=== PATIENT | female | born 2000 | race Caucasian/White ===

== ENCOUNTER 2020-08-04 18:00 | Inpatient (IN) | payer MEDICAID, SELFPAY ==
[2020-08-04 18:50] VITALS: BP 123/87; PULSE 82; RESP 16; TEMP 37; O2SAT 97; BMI 46.6
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
[2020-08-04 19:36] VITALS: BP 120/70; PULSE 80; RESP 16; TEMP 37; O2SAT 97
[2020-08-04 20:29] LABS: Basophils # 0.1 10^3/uL (0.0-0.1); Basophils % 0.7 %; Eosinophils # 0.3 10^3/uL (0.0-0.8); Eosinophils % 4.4 %; Hematocrit 42.9 % (37.0-47.0); Hemoglobin 13.7 g/dL (11.5-15.3); Lymphocytes # 2.3 10^3/uL (0.8-4.8); Lymphocytes % 30.8 %; Mean Corpuscular HGB Conc 31.9 g/dL (30.0-36.0); Mean Corpuscular Volume 84.4 fL (81-99); Mean Platelet Volume 10.4 fL (7.4-10.4); Monocytes # 0.5 10^3/uL (0.2-0.9); Monocytes % 6.8 %; Neutrophils # 4.29 10^3/uL (1.8-7.7); Neutrophils % 57.3 %; Nucleated Red Blood Cells % 0 %; Platelet Count 297 10^3/cmm (130-400); Red Blood Count 5.08 10^6/uL (4.1-5.3); Red Cell Distribution Width 14.1 % (12.1-15.1); White Blood Count 7.5 10^3/uL (4.0-10.0)
[2020-08-04 20:51] LABS: HCG Qualitative Urine. Negative (Negative)
[2020-08-04 20:51] LABS: Acetaminophen < 5.0 ug/mL (10-30); Alanine Aminotransferase 11 U/L (0-33); Albumin Level 4.2 g/dL (3.5-5.2); Alcohol Level < 10 mg/dL (0-10); Alkaline Phosphatase 65 IU/L (35-105); Anion Gap 13.8 (5-19); Aspartate Amino Transferase 14 U/L (0-32); Blood Urea Nitrogen 12 mg/dL (6-20); Calcium 8.9 mg/dL (8.5-10.5); Carbon Dioxide 23 mmol/L (22-29); Chloride 104 mmol/L (98-107); Globulin 3.1 g/dL (1.3-4.6); Glomerular Filtration Rate 105.6 mL/min (90-130); Glucose 85 mg/dL (65-115); Osmolality Calculated 283 mOsm/kg (285-295); Potassium 3.8 mmol/L (3.5-5.1); Salicylate < 0.3 mg/dL (3-10); Sodium 137 mmol/L (136-145); Total Bilirubin 0.3 mg/dL (0.15-1.2); Total Protein 7.3 g/dL (6.6-8.7)
[2020-08-04 22:24] LABS: Amphetamines Screen Urine Negative (Negative); Barbiturates Screen Urine Negative (Negative); Benzodiazepines Screen Urine Negative (Negative); Cocaine Screen Urine Negative (Negative); Opiate Screen Urine Negative (Negative); PCP Screen Urine Negative (Negative); THC Screen Urine Negative (Negative)
[2020-08-04 23:29] VITALS: BP 135/85; PULSE 67; RESP 18; TEMP 36.7; O2SAT 98
--- NOTE | 2020-08-04 23:36 | PC.NURSE ---
Skin assessment revealed no wounds or injuries. One bruise on abdomen. Bruising on left knee.
[2020-08-05 06:00] VITALS: BP 120/78; PULSE 71; RESP 17; TEMP 36.4; O2SAT 99
[2020-08-05] MEDS: nicotine 2 mg Gum BUCCAL ×2 (11:45→16:10)
[2020-08-05] MEDS: acetaminophen 325 mg Tablet 650 MG PO (12:02)
[2020-08-05] MEDS: hyDROXYzine 25 mg Capsule 50 MG PO (12:52)
[2020-08-05 14:00] VITALS: BP 120/78; PULSE 71; RESP 17; TEMP 36.4; O2SAT 99
[2020-08-05 15:31] VITALS: BP 98/64; PULSE 56; RESP 16; TEMP 37.2; O2SAT 98
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
[2020-08-05] MEDS: ARIPiprazole 10 mg Tablet PO (16:10)
[2020-08-05 20:42] VITALS: BP 130/85; PULSE 82; RESP 18; TEMP 37.2; O2SAT 96
[2020-08-05 20:43] VITALS: BP 130/85; PULSE 82; RESP 18; TEMP 37.2; O2SAT 96
[2020-08-05] MEDS: trazodone 50 mg Tablet PO (21:04)
--- NOTE | 2020-08-05 21:45 | PC.NURSE ---
pt requested sleep med, trazodone 50mg po given.
[2020-08-06 06:00] VITALS: BP 99/64; PULSE 79; RESP 17; TEMP 36.8; O2SAT 97
[2020-08-06] MEDS: nicotine 2 mg Gum BUCCAL ×3 (06:39→20:55)
[2020-08-06] MEDS: ARIPiprazole 10 mg Tablet PO (08:10)
[2020-08-06 14:00] VITALS: BP 114/62; PULSE 83; RESP 16; TEMP 36.6; O2SAT 98
[2020-08-06] MEDS: hyDROXYzine 25 mg Capsule 50 MG PO (16:05)
--- NOTE | 2020-08-06 16:07 | PC.NURSE ---
Patient request medication for anxiety. Hydroxizine 50 mg po given.
--- NOTE | 2020-08-06 20:03 | PM.NPN ---
Subjective NPU Subjective: Interval history: Maria Elena presented today reporting that she is feeling maybe a little better. Most of her energy was focused on the 96-hour hold and whether or not she would have to be in the hospital until . We discussed the 96-hour hold process and how we determine her discharge date. We discussed the risk-benefit and alternatives of increasing her Abilify to 50 mg p.o. every morning and she understood and agreed proceed as documented in his note. Mental Status Exam MSE Comments: This is a morbidly obese tall white female with hospital scrubs on with limited grooming but adequate eye contact. No abnormal movements except for mild psychomotor retardation. Cooperative with exam in no acute distress. Speech was normal rate and volume. Mood described as okay, affect odd with some inappropriate laughter and giggling. Thought process organized. Thought content: Patient denied suicidal or homicidal ideation, there are no delusions reported, but she does have some paranoid or bizarre delusional thoughts like she described believing that someone had done brain surgery on her, she endorsed auditory and visual hallucinations. Attention and concentration were intact and memory was mostly reliable but none were formally tested. She is alert and oriented x3. Insight and judgment are limited and impulse control is limited. Vitals/I&O/Wt Last Vital Signs Temp 97.9 F 08/06/20 14:00 Pulse 83 08/06/20 14:00 Resp 16 08/06/20 14:00 BP 114/62 08/06/20 14:00 Pulse Ox 98 08/06/20 14:00 Weight last 48 hrs Weight 139.253 kg Data NPU : 08/04/20 20:19 08/04/20 20:19 A&P Additional A&P Information (1) Methamphetamine use: (2) Acute psychosis: (3) History of posttraumatic stress disorder (PTSD): Additional A&P Information This is a 20-year-old white female with a long history of traumatic events in her life, disruption of her family with placement outside the home but no independent psychiatric care in her life who presents with active addiction but negative UDS with odd behavior/psychosis open to medication trial. 1. Continue current medication. Increase Abilify to 15 mg p.o. every morning. 2. Continue every 15 minute checks for safety. 3. Encourage individual, group and milieu therapies. 4. Encourage sober living treatment after discharge at the highest level of care to which he is willing to commit. Involuntary Hold Information 96 Hour Hold: 96 Hour Involuntary Admission: Yes 96 Hour Hold Ending Date: 08/10/20 96 Hour Hold Ending Time: 20:59 Attestations NPU Medical Necessity Statement*: Inpatient hospitalization is medically necessary and the clinically appropriate intervention at this time. We will monitor medications and make changes as indicated. Likely length of stay 2-4 days. Coding Level of Care Code Acute Research Physicist for Radha Butler
[2020-08-06] MEDS: trazodone 50 mg Tablet PO (20:39)
[2020-08-06 21:42] VITALS: BP 120/90; PULSE 94; RESP 21; TEMP 36.9; O2SAT 97
[2020-08-07 06:00] VITALS: BP 137/85; PULSE 98; RESP 19; TEMP 37.1; O2SAT 99
[2020-08-07] MEDS: ARIPiprazole 10 mg Tablet 15 MG PO (08:31)
[2020-08-07] MEDS: nicotine 2 mg Gum BUCCAL (11:19)
[2020-08-07 14:00] VITALS: PULSE 97; RESP 20; TEMP 36.2; O2SAT 98
--- NOTE | 2020-08-07 16:07 | P.PN_ITS ---
Subjective NPU Subjective: Interval history: Maria Elena presents today being more irritable about discharge now reporting that she has an appointment for her daughter in the morning that she has to get to. It appears to be to get resources for her family. We discussed possible talking to her brother who was part of her coming over and seeing how he feels she is improving. She reports he is fine but her full focus has turned to the discharge for some days now. Mental Status Exam MSE Comments: This is a morbidly obese tall white female with hospital scrubs on with limited grooming but adequate eye contact. No abnormal movements except for mild psychomotor agitation. Mostly cooperative with exam in mild distress. Speech was normal rate and volume. Mood described as I need to leave I am fine, affect less odd. Thought process organized. Thought content: Patient denied suicidal or homicidal ideation, there are no delusions reported, but she does have some paranoid or bizarre delusional thoughts like she described believing that someone had done brain surgery on her, she denied auditory and visual hallucinations. Attention and concentration were intact and memory was mostly reliable but none were formally tested. She is alert and oriented x3. Insight and judgment are limited and impulse control is limited. Vitals/I&O/Wt Last Vital Signs Temp 97.6 F 08/07/20 22:00 Pulse 98 08/07/20 22:00 Resp 15 08/07/20 22:00 BP 124/93 08/07/20 22:00 Pulse Ox 95 08/07/20 22:00 Data NPU : 08/04/20 20:19 08/04/20 20:19 A&P Additional A&P Information (1) Methamphetamine use: (2) Acute psychosis: (3) History of posttraumatic stress disorder (PTSD): Additional A&P Information This is a 20-year-old white female with a long history of traumatic events in her life, disruption of her family with placement outside the home but no independent psychiatric care in her life who presents with active addiction but negative UDS with odd behavior/psychosis open to medication trial. 1. Continue current medication. 2. Continue every 15 minute checks for safety. 3. Encourage individual, group and milieu therapies. 4. Encourage sober living treatment after discharge at the highest level of care to which he is willing to commit. Involuntary Hold Information 96 Hour Hold: 96 Hour Involuntary Admission: Yes 96 Hour Hold Ending Date: 08/10/20 96 Hour Hold Ending Time: 20:59 Attestations NPU Medical Necessity Statement*: Inpatient hospitalization is medically necessary and the clinically appropriate intervention at this time. We will monitor medications and make changes as indicated. Likely length of stay 1-3 days. Coding Level of Care Code Acute Cmm Technician for Radha Butler
[2020-08-07 16:46] VITALS: BP 136/84
[2020-08-07] MEDS: hyDROXYzine 25 mg Capsule 50 MG PO (17:12)
--- NOTE | 2020-08-07 17:12 | PC.NURSE ---
PRN VISTARIL 50 MG GIVEN PO PER PT C/O STATED ANXIETY. PT UPSET SHE ISN'T GETTING DISCHARGED TODAY, REQUESTING TO LEAVE UNIT SEVERAL TIMES OR HAVE PHYSICIAN SIGN HER OUT REDIRECTED BY STAFF NEEDED. WILL CONT TO MONITOR
[2020-08-07] MEDS: trazodone 50 mg Tablet PO (20:21)
[2020-08-07 22:00] VITALS: BP 124/93; PULSE 98; RESP 15; TEMP 36.4; O2SAT 95
--- NOTE | 2020-08-07 22:45 | PC.NURSE ---
At 2020, pt requested trazodone to help her sleep. Trazodone 50mg po given at that time. Pt now resting quietly with both eyes closed.
[2020-08-08 06:00] VITALS: BP 124/78; PULSE 74; RESP 16; TEMP 36.8; O2SAT 96
[2020-08-08] MEDS: ARIPiprazole 10 mg Tablet 15 MG PO (08:09)
[2020-08-08 13:58] VITALS: BP 133/91; PULSE 74; RESP 16; TEMP 37.1; O2SAT 97
[2020-08-08] MEDS: acetaminophen 325 mg Tablet 650 MG PO (14:26)
[2020-08-08] MEDS: hyDROXYzine 25 mg Capsule 50 MG PO (15:20)
[2020-08-08] MEDS: nicotine 2 mg Gum BUCCAL (15:21)
--- NOTE | 2020-08-08 15:22 | PC.NURSE ---
Administered Vistaril 50mg PO for patient C/O of increasing anxiety. Patient at the nurses station requesting to be sent to senior living. She is upset that she can not have her cell phone and she is bored. Nurse will monitor for medication effectiveness.
--- NOTE | 2020-08-08 17:54 | PM.NPN ---
Subjective NPU Subjective: Interval history: Maria Elena presented today reporting that she is feeling better. We were able to reach out to her brother who endorsed the fact that she would be staying with him but he would not be able to be a real support until Friday due to being out of town. We challenged her to find some possible supports for the time in between. She is endorsing less anxious about her daughter secondary to finding out the baby is actually with her grandmother and not her aunt. She was able to manage her emotions better about not being discharged. We discussed the possibility of discharge in the morning. Mental Status Exam MSE Comments: This is a morbidly obese tall white female with hospital scrubs on with limited grooming but adequate eye contact. No abnormal movements. More cooperative with exam in no acute distress. Speech was normal rate and volume. Mood described as doing better, affect more calm. Thought process organized. Thought content: Patient denied suicidal or homicidal ideation, there are no delusions reported or noted, she denied auditory and visual hallucinations. Attention and concentration were intact and memory was mostly reliable but none were formally tested. She is alert and oriented x3. Insight and judgment are limited, but improving and impulse control is improving. Vitals/I&O/Wt Last Vital Signs Temp 98.9 F 08/08/20 20:32 Pulse 98 08/08/20 20:32 Resp 15 08/08/20 20:32 BP 137/88 08/08/20 20:32 Pulse Ox 97 08/08/20 20:32 Data NPU : 08/04/20 20:19 08/04/20 20:19 A&P Additional A&P Information (1) Methamphetamine use: (2) Acute psychosis: (3) History of posttraumatic stress disorder (PTSD): Additional A&P Information This is a 20-year-old white female with a long history of traumatic events in her life, disruption of her family with placement outside the home but no independent psychiatric care in her life who presents with active addiction but negative UDS with odd behavior/psychosis open to medication trial. 1. Continue current medication. 2. Continue every 15 minute checks for safety. 3. Encourage individual, group and milieu therapies. 4. Encourage sober living treatment after discharge at the highest level of care to which he is willing to commit. 5. Consider discharge in the morning. Involuntary Hold Information 96 Hour Hold: 96 Hour Involuntary Admission: Yes 96 Hour Hold Ending Date: 08/10/20 96 Hour Hold Ending Time: 20:59 Attestations NPU Medical Necessity Statement*: Inpatient hospitalization is medically necessary and the clinically appropriate intervention at this time. We will monitor medications and make changes as indicated. Likely length of stay 1-2 days. Coding Level of Care Code Acute [employer] Tender for Radha Butler
[2020-08-08 20:32] VITALS: BP 137/88; PULSE 98; RESP 15; TEMP 37.2; O2SAT 97
[2020-08-08] MEDS: trazodone 50 mg Tablet PO (23:05)
--- NOTE | 2020-08-08 23:08 | PC.NURSE ---
PT CAME TO DESK REQUESTING SLEEPING PILL. TRAZODONE 50MG PO GIVEN.
[2020-08-09] MEDS: acetaminophen 325 mg Tablet 650 MG PO (02:15)
[2020-08-09] MEDS: hyDROXYzine 25 mg Capsule 50 MG PO (04:13)
[2020-08-09 06:00] VITALS: BP 118/73; PULSE 75; RESP 15; TEMP 37.2; O2SAT 98
--- NOTE | 2020-08-09 06:17 | PC.NURSE ---
At 041, pt came to nurses desk requesting anxiety med. Vistaril 50mg po given at that time. pt has been resting quietly with both eyes closed since.
[2020-08-09] MEDS: polyethylene glycol 3350 Pkt 17 gm PO (07:51)
[2020-08-09] MEDS: ARIPiprazole 10 mg Tablet 15 MG PO (09:09)
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
[2020-08-09 11:07] VITALS: BP 118/73; PULSE 75; RESP 15; TEMP 37.2; O2SAT 98
== END 2020-08-09 13:12 | disposition home or self-care (01) | DRG 885 ==
LOC: ER 19:35 → NP 21:23
PROVIDERS: Admitting Provider Psychiatry & Neurology Psychiatry; Emergency Provider Family Medicine; PCP Family Medicine; Visit Provider Psychiatry & Neurology Psychiatry
DX: F23 Brief psychotic disorder (principal); Z68.42 Body mass index [BMI] 45.0-49.9, adult; F15.90 Other stimulant use, unspecified, uncomplicated; F17.210 Nicotine dependence, cigarettes, uncomplicated; E66.01 Morbid (severe) obesity due to excess calories; F43.10 Post-traumatic stress disorder, unspecified
CPT/HCPCS: 80053; 80306; 80307; 81025; 85025; 99285

== ENCOUNTER 2020-08-23 13:47 | Emergency (ER) | payer MEDICAID, SELFPAY ==
[2020-08-23 14:44] VITALS: BP 143/99; PULSE 96; RESP 16; TEMP 37.4; O2SAT 96; BMI 48.2
--- NOTE | 2020-08-23 17:15 | W.ED.GENADLT ---
Documented by User: Mateus Almonte DO 08/28/20 13:51 HPI - General Adult General: Chief complaint: General Medical Stated complaint: SORE THROAT, HEADACHE, DIZZY X 3 DAYS Time Seen by Provider: 08/23/20 17:09 History of Present Illness: HPI narrative: 20-year-old female comes in complaining of shortness of breath headache cough dizziness last 3 days with a sore throat. She does not appear to be in any acute distress she has no difficulty with her voice. She has a history of some mental health issues. She asks about if sperm can make her throat sore. Onset (ago): day(s) Severity: mild Relieving factors: none Exacerbating factors: none Associated symptoms: Deny chest pain, confusion, cough, diaphoresis, decreased appetite, dyspnea, fevers/chills, headache(s), malaise, nausea, rash, palpitations, short of breath, syncope, vomiting or weakness Treatments prior to arrival: none Review of Systems Const: Denies: malaise or diaphoresis Card: Denies: chest pain, palpitations or syncope Resp: Denies: dyspnea GI: Denies: nausea or vomiting Skin/Breast: Denies: rash Neuro: Denies: headache(s) or confusion [facility] Female Reproductive History: Date of last menstrual period: 08/10/20 Physical Exam Const: COMMON NORMALS: no acute distress GENERAL APPEARANCE: cooperative and comfortable ORIENTATION/CONSCIOUSNESS: Yes awake, Yes oriented to person, Yes oriented to place and Yes oriented to time HENMT: COMMON NORMALS: normocephalic, atraumatic and hearing grossly normal bilaterally HEAD & SCALP: normocephalic and atraumatic THROAT: posterior oropharynx abnormal edema and erythema Eye: COMMON NORMALS: Equal, round and reactive pupils present, EOMs intact bilaterally, conjunctivae normal and no scleral icterus CONJUNCTIVA: Yes conjunctivae normal PUPIL: Yes Equal, round and reactive pupils present Neck/C-Spine: COMMON NORMALS: full ROM, no lymphadenopathy, supple and no JVD Lymph: LYMPHATIC: no lymphadenopathy noted and no lymphedema noted Resp: COMMON NORMALS: normal respiratory effort, No retractions, No use of accessory muscles and clear to auscultation bilaterally AUSCULTATION: clear to auscultation bilaterally Cardio: COMMON NORMALS: no JVD, regular rate, regular rhythm and No murmurs present (Cardio) RATE: regular rate RHYTHM: regular rhythm GI: COMMON NORMALS: Soft to palpation and No hepatosplenomegaly present AUSCULTATION: Yes normoactive bowel sounds PALPATION: Yes Soft to palpation, No Tenderness to palpation present (GI), No Guarding due to palpation present (GI) and Yes No hepatosplenomegaly present Extremity: COMMON NORMALS: normal to inspection, capillary refill normal, no clubbing, cyanosis or edema, no calf tenderness and no pedal edema Neuro: SENSORIUM/ORIENTATION: Yes oriented to person, Yes oriented to place and Yes oriented to time Skin: COMMON NORMALS: no rashes or lesions noted GENERAL SKIN EXAM: no rashes or lesions noted Course Vital Signs: Vital signs: Vital Signs Temperature 99.3 F 08/23/20 14:44 Pulse Rate 96 08/23/20 14:44 Respiratory Rate 16 08/23/20 14:44 Blood Pressure 143/99 08/23/20 14:44 Pulse Oximetry 96 08/23/20 14:44 MDM - General Adult MDM Narrative: Medical decision making narrative: Care turned over to Dr. Maxwell at change of shift see his notes for final diagnosis and disposition. Lab Data: Labs: Lab Results 08/23/20 08/23/20 08/23/20 Range/Units 17:23 18:00 18:00 WBC 6.1 (4.0-10.0) 10^3/ uL RBC 4.84 (4.1-5.3) 10^6/u L Hgb 13.2 (11.5-15.3) g/dL Hct 42.1 (37.0-47.0) % MCV 87.0 (81-99) fL MCH 27.3 L (28.0-34.0) pg MCHC 31.4 (30.0-36.0) g/dL RDW 13.9 (12.1-15.1) % Plt Count 215 (130-400) 10^3/c mm MPV 10.1 (7.4-10.4) fL Neut % (Auto) 66.9 % Lymph % (Auto) 23.4 % [place] % (Auto) 8.5 % Eos % (Auto) 0.7 % Baso % (Auto) 0.3 % Neut # (Auto) 4.09 (1.8-7.7) 10^3/u L Lymph # (Auto) 1.4 (0.8-4.8) 10^3/u L [place] # (Auto) 0.5 (0.2-0.9) 10^3/u L Eos # (Auto) 0.0 (0.0-0.8) 10^3/u L Baso # (Auto) 0.0 (0.0-0.1) 10^3/u L Nucleated RBC % (a uto) 0 % Nucleated RBCs # 0.0 /100WBC Sodium 136 (136-145) mmol/L Potassium 3.5 (3.5-5.1) mmol/L Chloride 101 (98-107) mmol/L Carbon Dioxide 24 (22-29) mmol/L Anion Gap 14.5 (5-19) BUN 12 (6-20) mg/dL Creatinine 0.7 (0.5-0.9) mg/dL GFR Calculation 105.6 (90-130) mL/min Glucose 75 (65-115) mg/dL Calculated Osmolal ity 280 L (285-295) mOsm/k g Calcium 8.3 L (8.5-10.5) mg/dL Total Bilirubin 0.2 (0.15-1.2) mg/dL AST 18 (0-32) U/L ALT 17 (0-33) U/L Alkaline Phosphata se 56 (35-105) IU/L Total Protein 6.6 (6.6-8.7) g/dL Albumin 3.9 (3.5-5.2) g/dL Globulin 2.7 (1.3-4.6) g/dL HCG, Qual (Negative) Urine Color Yellow (Yellow) Urine Appearance Cloudy (CLEAR) Urine pH 5 (5-7) Ur Specific Gravit y 1.020 (1.005-1.030) Urine Protein Trace (Negative) Urine Glucose (UA) Norm (Normal) Urine Ketones 1+ H (Negative) Urine Blood Neg (Negative) Urine Nitrate Negative (Negative) Urine Bilirubin Neg (Negative) Urine Urobilinogen 1 H (Negative) mg/dL Ur Leukocyte Chela ase Negative (Negative) Urine RBC Rare (0-2) /hpf Urine WBC 0-4 H (0-5) /hpf Ur Squamous Epith Cells 25-40 H (0-5) /hpf Amorphous Sediment Not Reportable Urine Bacteria 2+ H (NONE) /hpf Urine Mucus Trace /hpf Nasal/Oral COVID-1 9 PCR Group A Strep Rapi d (Negative) 08/23/20 08/23/20 08/23/20 Range/Units 18:00 18:00 18:00 WBC (4.0-10.0) 10^3/ uL RBC (4.1-5.3) 10^6/u L Hgb (11.5-15.3) g/dL Hct (37.0-47.0) % MCV (81-99) fL MCH (28.0-34.0) pg MCHC (30.0-36.0) g/dL RDW (12.1-15.1) % Plt Count (130-400) 10^3/c mm MPV (7.4-10.4) fL Neut % (Auto) % Lymph % (Auto) % [place] % (Auto) % Eos % (Auto) % Baso % (Auto) % Neut # (Auto) (1.8-7.7) 10^3/u L Lymph # (Auto) (0.8-4.8) 10^3/u L [place] # (Auto) (0.2-0.9) 10^3/u L Eos # (Auto) (0.0-0.8) 10^3/u L Baso # (Auto) (0.0-0.1) 10^3/u L Nucleated RBC % (a uto) % Nucleated RBCs # /100WBC Sodium (136-145) mmol/L Potassium (3.5-5.1) mmol/L Chloride (98-107) mmol/L Carbon Dioxide (22-29) mmol/L Anion Gap (5-19) BUN (6-20) mg/dL Creatinine (0.5-0.9) mg/dL GFR Calculation (90-130) mL/min Glucose (65-115) mg/dL Calculated Osmolal ity (285-295) mOsm/k g Calcium (8.5-10.5) mg/dL Total Bilirubin (0.15-1.2) mg/dL AST (0-32) U/L ALT (0-33) U/L Alkaline Phosphata se (35-105) IU/L Total Protein (6.6-8.7) g/dL Albumin (3.5-5.2) g/dL Globulin (1.3-4.6) g/dL HCG, Qual Negative (Negative) Urine Color (Yellow) Urine Appearance (CLEAR) Urine pH (5-7) Ur Specific Gravit y (1.005-1.030) Urine Protein (Negative) Urine Glucose (UA) (Normal) Urine Ketones (Negative) Urine Blood (Negative) Urine Nitrate (Negative) Urine Bilirubin (Negative) Urine Urobilinogen (Negative) mg/dL Ur Leukocyte Chela ase (Negative) Urine RBC (0-2) /hpf Urine WBC (0-5) /hpf Ur Squamous Epith Cells (0-5) /hpf Amorphous Sediment Urine Bacteria (NONE) /hpf Urine Mucus /hpf Nasal/Oral COVID-1 9 PCR Detected H Group A Strep Rapi d Negative (Negative) Discharge Plan Discharge Patient Disposition: Home Clinical Impression: Acute sore throat Upper respiratory infection Qualifiers: URI type: unspecified URI Qualified Code(s): J06.9 - Acute upper respiratory infection, unspecified Condition: Stable Prescriptions: New doxycycline hyclate 100 mg capsule 100 mg PO BID 7 Days Qty: 14 RF: 0 No Action trazodone 50 mg Tablet 50 mg PO BEDTIME PRN (Reason: Sleep) 30 Days Qty: 30 RF: 1 aripiprazole 10 mg Tablet 15 mg PO DAILY 30 Days Qty: 45 RF: 1 Discharge Orders: Discharge ED (Routine); Ordered 08/23/20 Ordered By: Jose Maxwell Referrals: Rpua Duffy MD [Primary Care Provider] - 1-3 days Discharge Diet: Advance as tolerated Discharge Activity: Resume usual activity Patient Instructions: Pharyngitis (ED) Coding Level of Care Code ED Supervisor Last Model Department for [facility] Documented by User: Jose Maxwell MD 08/23/20 19:40 HPI - General Adult General: Chief complaint: General Medical Stated complaint: SORE THROAT, HEADACHE, DIZZY X 3 DAYS Time Seen by Provider: 08/23/20 17:09 Course Vital Signs: Vital signs: Vital Signs Temperature 99.3 F 08/23/20 14:44 Pulse Rate 96 08/23/20 14:44 Respiratory Rate 16 08/23/20 14:44 Blood Pressure 143/99 08/23/20 14:44 Pulse Oximetry 96 08/23/20 14:44 MDM - General Adult MDM Narrative: Medical decision making narrative: Patient presents here with sore throat cough and congestion. Patient does have a likely pharyngitis and concerns for possible STD. Patient given Rocephin here and will place on doxycycline for home. Patient stable here and stable for discharge. Lab Data: Labs: Lab Results 08/23/20 08/23/20 08/23/20 Range/Units 17:23 18:00 18:00 WBC 6.1 (4.0-10.0) 10^3/ uL RBC 4.84 (4.1-5.3) 10^6/u L Hgb 13.2 (11.5-15.3) g/dL Hct 42.1 (37.0-47.0) % MCV 87.0 (81-99) fL MCH 27.3 L (28.0-34.0) pg MCHC 31.4 (30.0-36.0) g/dL RDW 13.9 (12.1-15.1) % Plt Count 215 (130-400) 10^3/c mm MPV 10.1 (7.4-10.4) fL Neut % (Auto) 66.9 % Lymph % (Auto) 23.4 % [place] % (Auto) 8.5 % Eos % (Auto) 0.7 % Baso % (Auto) 0.3 % Neut # (Auto) 4.09 (1.8-7.7) 10^3/u L Lymph # (Auto) 1.4 (0.8-4.8) 10^3/u L [place] # (Auto) 0.5 (0.2-0.9) 10^3/u L Eos # (Auto) 0.0 (0.0-0.8) 10^3/u L Baso # (Auto) 0.0 (0.0-0.1) 10^3/u L Nucleated RBC % (a uto) 0 % Nucleated RBCs # 0.0 /100WBC Sodium 136 (136-145) mmol/L Potassium 3.5 (3.5-5.1) mmol/L Chloride 101 (98-107) mmol/L Carbon Dioxide 24 (22-29) mmol/L Anion Gap 14.5 (5-19) BUN 12 (6-20) mg/dL Creatinine 0.7 (0.5-0.9) mg/dL GFR Calculation 105.6 (90-130) mL/min Glucose 75 (65-115) mg/dL Calculated Osmolal ity 280 L (285-295) mOsm/k g Calcium 8.3 L (8.5-10.5) mg/dL Total Bilirubin 0.2 (0.15-1.2) mg/dL AST 18 (0-32) U/L ALT 17 (0-33) U/L Alkaline Phosphata se 56 (35-105) IU/L Total Protein 6.6 (6.6-8.7) g/dL Albumin 3.9 (3.5-5.2) g/dL Globulin 2.7 (1.3-4.6) g/dL HCG, Qual (Negative) Urine Color Yellow (Yellow) Urine Appearance Cloudy (CLEAR) Urine pH 5 (5-7) Ur Specific Gravit y 1.020 (1.005-1.030) Urine Protein Trace (Negative) Urine Glucose (UA) Norm (Normal) Urine Ketones 1+ H (Negative) Urine Blood Neg (Negative) Urine Nitrate Negative (Negative) Urine Bilirubin Neg (Negative) Urine Urobilinogen 1 H (Negative) mg/dL Ur Leukocyte Chela ase Negative (Negative) Urine RBC Rare (0-2) /hpf Urine WBC 0-4 H (0-5) /hpf Ur Squamous Epith Cells 25-40 H (0-5) /hpf Amorphous Sediment Not Reportable Urine Bacteria 2+ H (NONE) /hpf Urine Mucus Trace /hpf Nasal/Oral COVID-1 9 PCR Group A Strep Rapi d (Negative) 08/23/20 08/23/20 08/23/20 Range/Units 18:00 18:00 18:00 WBC (4.0-10.0) 10^3/ uL RBC (4.1-5.3) 10^6/u L Hgb (11.5-15.3) g/dL Hct (37.0-47.0) % MCV (81-99) fL MCH (28.0-34.0) pg MCHC (30.0-36.0) g/dL RDW (12.1-15.1) % Plt Count (130-400) 10^3/c mm MPV (7.4-10.4) fL Neut % (Auto) % Lymph % (Auto) % [place] % (Auto) % Eos % (Auto) % Baso % (Auto) % Neut # (Auto) (1.8-7.7) 10^3/u L Lymph # (Auto) (0.8-4.8) 10^3/u L [place] # (Auto) (0.2-0.9) 10^3/u L Eos # (Auto) (0.0-0.8) 10^3/u L Baso # (Auto) (0.0-0.1) 10^3/u L Nucleated RBC % (a uto) % Nucleated RBCs # /100WBC Sodium (136-145) mmol/L Potassium (3.5-5.1) mmol/L Chloride (98-107) mmol/L Carbon Dioxide (22-29) mmol/L Anion Gap (5-19) BUN (6-20) mg/dL Creatinine (0.5-0.9) mg/dL GFR Calculation (90-130) mL/min Glucose (65-115) mg/dL Calculated Osmolal ity (285-295) mOsm/k g Calcium (8.5-10.5) mg/dL Total Bilirubin (0.15-1.2) mg/dL AST (0-32) U/L ALT (0-33) U/L Alkaline Phosphata se (35-105) IU/L Total Protein (6.6-8.7) g/dL Albumin (3.5-5.2) g/dL Globulin (1.3-4.6) g/dL HCG, Qual Negative (Negative) Urine Color (Yellow) Urine Appearance (CLEAR) Urine pH (5-7) Ur Specific Gravit y (1.005-1.030) Urine Protein (Negative) Urine Glucose (UA) (Normal) Urine Ketones (Negative) Urine Blood (Negative) Urine Nitrate (Negative) Urine Bilirubin (Negative) Urine Urobilinogen (Negative) mg/dL Ur Leukocyte Chela ase (Negative) Urine RBC (0-2) /hpf Urine WBC (0-5) /hpf Ur Squamous Epith Cells (0-5) /hpf Amorphous Sediment Urine Bacteria (NONE) /hpf Urine Mucus /hpf Nasal/Oral COVID-1 9 PCR Detected H Group A Strep Rapi d Negative (Negative) Discharge Plan Discharge Patient Disposition: Home Clinical Impression: Acute sore throat Upper respiratory infection Qualifiers: URI type: unspecified URI Qualified Code(s): J06.9 - Acute upper respiratory infection, unspecified Condition: Stable Prescriptions: New doxycycline hyclate 100 mg capsule 100 mg PO BID 7 Days Qty: 14 RF: 0 No Action trazodone 50 mg Tablet 50 mg PO BEDTIME PRN (Reason: Sleep) 30 Days Qty: 30 RF: 1 aripiprazole 10 mg Tablet 15 mg PO DAILY 30 Days Qty: 45 RF: 1 Discharge Orders: Discharge ED (Routine); Ordered 08/23/20 Ordered By: Jose Maxwell Referrals: Rupa Duffy MD [Primary Care Provider] - 1-3 days Discharge Diet: Advance as tolerated Discharge Activity: Resume usual activity Patient Instructions: Pharyngitis (ED) Coding Level of Care Code ED Supervisor Last Model Department for Radha Butler
[2020-08-23 18:04] LABS: Urine Appearance Cloudy (CLEAR); Urine Color Yellow (Yellow)
[2020-08-23 18:05] LABS: Add Urine Microscopic? YES; Bilirubin Urine Neg (Negative); Blood Urine Neg (Negative); Glucose Urine UA Norm (Normal); Ketones Urine 1+ (Negative); Leukocyte Esterase Urine Negative (Negative); Nitrate Urine Negative (Negative); Protein Urine Trace (Negative); Urobilinogen Urine 1 mg/dL (Negative); pH Urine 5 (5-7)
[2020-08-23 18:07] LABS: RBC Urine RARE /hpf (0-2); Squamous Epithelial Cell Urine 25-40 /hpf (0-5); WBC Urine 0-4 /hpf (0-5)
[2020-08-23 18:08] LABS: Add Urine Culture? No; Bacteria Urine 2+ /hpf; Mucus Urine TRACE /hpf
[2020-08-23 18:49] LABS: Basophils % 0.3 %; Eosinophils % 0.7 %; Hematocrit 42.1 % (37.0-47.0); Hemoglobin 13.2 g/dL (11.5-15.3); Lymphocytes # 1.4 10^3/uL (0.8-4.8); Lymphocytes % 23.4 %; Mean Corpuscular HGB Conc 31.4 g/dL (30.0-36.0); Mean Corpuscular Hemoglobin 27.3 pg (28.0-34.0); Mean Platelet Volume 10.1 fL (7.4-10.4); Monocytes # 0.5 10^3/uL (0.2-0.9); Monocytes % 8.5 %; Neutrophils # 4.09 10^3/uL (1.8-7.7); Neutrophils % 66.9 %; Nucleated Red Blood Cells % 0 %; Platelet Count 215 10^3/cmm (130-400); Red Blood Count 4.84 10^6/uL (4.1-5.3); Red Cell Distribution Width 13.9 % (12.1-15.1); White Blood Count 6.1 10^3/uL (4.0-10.0)
[2020-08-23 19:05] LABS: Rapid Strep A Test Negative (Negative)
[2020-08-23 19:11] LABS: HCG, Serum Qual Negative (Negative)
[2020-08-23 19:24] LABS: Alanine Aminotransferase 17 U/L (0-33); Albumin Level 3.9 g/dL (3.5-5.2); Alkaline Phosphatase 56 IU/L (35-105); Anion Gap 14.5 (5-19); Aspartate Amino Transferase 18 U/L (0-32); Blood Urea Nitrogen 12 mg/dL (6-20); Calcium 8.3 mg/dL (8.5-10.5); Carbon Dioxide 24 mmol/L (22-29); Chloride 101 mmol/L (98-107); Globulin 2.7 g/dL (1.3-4.6); Glomerular Filtration Rate 105.6 mL/min (90-130); Glucose 75 mg/dL (65-115); Osmolality Calculated 280 mOsm/kg (285-295); Potassium 3.5 mmol/L (3.5-5.1); Sodium 136 mmol/L (136-145); Total Bilirubin 0.2 mg/dL (0.15-1.2); Total Protein 6.6 g/dL (6.6-8.7)
--- NOTE | 2020-08-23 20:16 | PC.NURSE ---
after administration of IM Rocephin I went to check on patient and she was outside eating a pizza that she had delivered to the hospital. she had no adverse reaction noted and I reviewed her discharged instructions to f/u with doctor and take antibiotics as prescribed. there were no discharge vitals as patient left the ED.
[2020-08-24 14:36] LABS: Coronavirus Test Green County Detected
--- NOTE | 2020-08-25 08:02 | PC.NURSE ---
pt informed of POSITIVE covid results
== END 2020-08-23 20:15 | disposition home or self-care (01) ==
PROVIDERS: Family Medicine; Physician Assistant; Emergency Provider Emergency Medicine; PCP Family Medicine
DX: U07.1 COVID-19 (principal)
CPT/HCPCS: 80053; 81001; 84703; 85025; 87081; 87210; 87491; 87591; 87635; 87880; 96372; 99283; J0696

== ENCOUNTER 2021-04-22 10:44 | Emergency (ER) | payer MEDICAID, SELFPAY ==
[2021-04-22 10:47] VITALS: BP 146/82; PULSE 80; RESP 18; TEMP 36.8; O2SAT 98; BMI 48.8
--- NOTE | 2021-04-22 11:00 | ED_ITS ---
HPI - Abdominal Pain General: Chief Complaint: Abdominal Pain Stated Complaint: Urinary problems; kidneys Time Seen by Provider: 04/22/21 10:59 History of Present Illness: Ms Corona is a 20-year-old lady with remote history of substance abuse and history of PTSD who presents to the emergency department due to concern of her breathing and her kidneys. She reports about 1 week history of progressive onset shortness of breath. She denies associated upper respiratory or cough with this. She denies associated chest pain just at times feels that it is difficult to get a full breath. Additionally over the past 2 to 3 days she has noticed some dysuria and incomplete emptying. She is concerned that her kidneys are missing however has difficulty expanding on the symptoms. There is mild associated aching in her abdomen. Overall course of symptoms has persisted. No other specific signs of systemic illness, exacerbating, or alleviating factors identified. Patient denies current smoking, does endorse history of perhaps 3 to 4 packs total in her life. She reports social drinking. She denies any other substance abuse. She currently lives with her daughter in [place], she denies anyone threatening or physically harming her. Onset (ago): day(s) Location: Suprapubic Severity: mild Quality: aching Associated Symptoms: Reports dysuria; Denies diarrhea, fever(s), nausea and vomiting Related Data: Date of Last Menstrual Period: 08/10/20 Review of Systems General: Reports: 10 or more systems reviewed and unremarkable except in HPI and below Const: Denies: fever(s) GI: Denies: nausea, vomiting or diarrhea : Reports: dysuria [facility] ED PFSH: Medical History History of posttraumatic stress disorder (PTSD) Methamphetamine use Surgical History History of section Social History Smoking and tobacco status: former smoker Substance/Drug Use: former Female Reproductive History: Date of last menstrual period: 08/10/20 Physical Exam Const: COMMON NORMALS: alert GENERAL APPEARANCE: cooperative and well developed HENMT: COMMON NORMALS: normocephalic and atraumatic HEAD & SCALP: normocephalic and atraumatic Eye: COMMON NORMALS: conjunctivae normal CONJUNCTIVA: Yes conjunctivae normal SCLERA: sclerae normal Neck/C-Spine: COMMON NORMALS: supple GENERAL: Yes trachea midline Resp: COMMON NORMALS: normal respiratory effort EFFORT & INSPECTION: Yes able to speak in complete sentences AUSCULTATION: diminished lung sounds Cardio: COMMON NORMALS: regular rate and regular rhythm RATE: regular rate RHYTHM: regular rhythm GI: COMMON NORMALS: Soft to palpation PALPATION: Yes Soft to palpation and No Tenderness to palpation present (GI) PERCUSSION: normal to percussion Extremity: GENERAL: Yes normal exam except as noted and No edema Neuro: COMMON NORMALS: moves all extremities SENSORIUM/ORIENTATION: Yes alert and No Orientation impaired Psych: COMMON NORMALS: mental status grossly normal and Normal thought process present THOUGHT PROCESS: Normal thought process present Course ED course: - Patient was seen and evaluated by me at bedside - Patient placed on cardiac monitors, IV access obtained - Initial evaluation notable for exam as above. I spent extensive time trying to identify specifically what the patient was concerned about. - Labs notable for no leukocytosis. Metabolic panel without evidence of electro lyte derangement. Urinalysis not concerning for urinary tract infection, bacteria likely due to squamous epithelial contamination. - Imaging notable for no acute finding - Upon serial reexamination after treatment the patient was similar - Based on patient history, evaluation, labs, and imaging as interpreted the most likely cause of the patient's condition is symptoms of unclear etiology. - The results of ED evaluation were discussed with the patient. I once again spent extensive time with the patient to assess overall concerns. Very challenging situation, the patient does have a component of anxiety regarding health. The patient's anxiety stems from multiple sources. I believe that a significant component of the patient's somewhat odd presentation is secondary to poor medical literacy. While there is a disconnect regarding actual etiology of the symptoms she expresses concern which is logical to her and goal oriented. She is concerned about her kidneys and missing bones as a possible descriptor for abdominal symptoms that she is experiencing. She has a family member who r ecently had an apparent intestinal perforation and she wants to ensure that that is not the case however I believe that she does not have the correct terms to describe what she is concerned about at times. I did discuss topics including safetywith patient. She adamantly denies suicidal or homicidal ideation. She does report social stressors and decreased social support. Based on my assessment of the patient I do not have any reason to believe that the patient presents a threat self or others including her child who she presents with. - I discussed followup plan, and return precautions. The patient verbalized understanding and felt safe for discharge. - Patient discharged in satisfactory condition. Note: Click bubbles or prepopulated brock in note writing are used for assistance with data collection and billing and are inherently more limited than narrative and other text portions of this note. Please use narrative for additional clinical history and defer to narrative/free test for any case of contradictory information. If information appears in only free text or click bubble it should be considered present or absent as reported. Please contact note rfp writer for clarifications of clinical information or contradictory information. MDM is a brief summary, contradictory or erroneous seeming information should be clarified and full note should be reviewed. Vital Signs: Vital signs: Vital Signs Temperature 98.2 F 04/22/21 10:47 Pulse Rate 85 04/22/21 11:18 Respiratory Rate 18 04/22/21 10:47 Blood Pressure 132/78 04/22/21 11:18 Pulse Oximetry 98 04/22/21 11:18 MDM - Abdominal Pain Medical Decision Making 20-year-old lady presenting with concerns regarding overall health. Negative ED evaluation for apparent cause. Satisfactory for outpatient management. Medical Records I reviewed the patient's medical records. Lab Data I reviewed the patient's lab results. : 04/22/21 11:37 04/22/21 11:37 Labs/Radiology: Radiology Impressions Chest X-Ray 04/22/21 11:12 IMPRESSION: No acute findings. Laboratory Results WBC 8.5 10^3/uL (4.0-10.0) 04/22/21 11:37 RBC 4.93 10^6/uL (4.1-5.3) 04/22/21 11:37 Hgb 13.6 g/dL (11.5-15.3) 04/22/21 11:37 Hct 42.7 % (37.0-47.0) 04/22/21 11:37 MCV 86.6 fl (81-99) 04/22/21 11:37 MCH 27.6 pg (28.0-34.0) L 04/22/21 11:37 MCHC 31.9 g/dL (30.0-36.0) 04/22/21 11:37 RDW 14.0 % (12.1-15.1) 04/22/21 11:37 Plt Count 328 10^3/cmm (130-400) 04/22/21 11:37 MPV 9.5 fL (7.4-10.4) 04/22/21 11:37 Neut % (Auto) 58.4 % 04/22/21 11:37 Lymph % (Auto) 30.4 % 04/22/21 11:37 [place] % (Auto) 6.6 % 04/22/21 11:37 Eos % (Auto) 3.9 % 04/22/21 11:37 Baso % (Auto) 0.5 % 04/22/21 11:37 Neut # (Auto) 4.93 10^3/uL (1.8-7.7) 04/22/21 11:37 Lymph # (Auto) 2.6 10^3/uL (0.8-4.8) 04/22/21 11:37 [place] # (Auto) 0.6 10^3/uL (0.2-0.9) 04/22/21 11:37 Eos # (Auto) 0.3 10^3/uL (0.0-0.8) 04/22/21 11:37 Baso # (Auto) 0.0 10^3/uL (0.0-0.1) 04/22/21 11:37 Nucleated RBC % (auto) 0 % 04/22/21 11:37 Nucleated RBCs # 0.0 /100WBC 04/22/21 11:37 Sodium 136 mmol/L (136-145) 04/22/21 11:37 Potassium 3.9 mmol/L (3.5-5.1) 04/22/21 11:37 Chloride 100 mmol/L (98-107) 04/22/21 11:37 Carbon Dioxide 24 mmol/L (22-29) 04/22/21 11:37 Anion Gap 15.9 (5-19) 04/22/21 11:37 BUN 15 mg/dL (6-20) 04/22/21 11:37 Creatinine 0.8 mg/dL (0.5-0.9) 04/22/21 11:37 GFR Calculation 90.5 mL/min (90-130) 04/22/21 11:37 Glucose 95 mg/dL (65-115) 04/22/21 11:37 Calculated Osmolality 283 mOsm/kg (285-295) L 04/22/21 11:37 Calcium 9.1 mg/dL (8.5-10.5) 04/22/21 11:37 Total Bilirubin 0.5 mg/dL (0.15-1.2) 04/22/21 11:37 AST 26 U/L (0-32) 04/22/21 11:37 ALT 22 U/L (0-33) 04/22/21 11:37 Alkaline Phosphatase 73 IU/L (35-105) 04/22/21 11:37 Total Protein 7.9 g/dL (6.6-8.7) 04/22/21 11:37 Albumin 4.7 g/dL (3.5-5.2) 04/22/21 11:37 Globulin 3.2 g/dL (1.3-4.6) 04/22/21 11:37 HCG, Qual Negative (Negative) 04/22/21 11:37 Urine Color Yellow (Yellow) 04/22/21 11:37 Urine Appearance Sl hazy (CLEAR) 04/22/21 11:37 Urine pH 6.5 (5-7) 04/22/21 11:37 Ur Specific [place] 1.015 (1.005-1.030) 04/22/21 11:37 Urine Protein Neg (Negative) 04/22/21 11:37 Urine Glucose (UA) Norm (Normal) 04/22/21 11:37 Urine Ketones Negative (Negative) 04/22/21 11:37 Urine Blood Neg (Negative) 04/22/21 11:37 Urine Nitrate Negative (Negative) 04/22/21 11:37 Urine Bilirubin Neg (Negative) 04/22/21 11:37 Urine Urobilinogen Norm mg/dL (Negative) 04/22/21 11:37 Ur Leukocyte Esterase Negative (Negative) 04/22/21 11:37 Urine RBC None /hpf (0-2) 04/22/21 11:37 Urine WBC Rare /hpf (0-5) 04/22/21 11:37 Ur Squamous Epith Cells 25-40 /hpf (0-5) H 04/22/21 11:37 Amorphous Sediment Not Reportable 04/22/21 11:37 Urine Bacteria 4+ /hpf (NONE) H 04/22/21 11:37 Urine Opiates Screen Negative ng/mL (Negative) 04/22/21 11:37 Ur Barbiturates Screen Negative ng/mL (Negative) 04/22/21 11:37 Ur Phencyclidine Scrn Negative ng/mL (Negative) 04/22/21 11:37 Ur Amphetamines Screen Negative ng/mL (Negative) 04/22/21 11:37 U Benzodiazepines Scrn Negative ng/mL (Negative) 04/22/21 11:37 Urine Cocaine Screen Negative ng/mL (Negative) 04/22/21 11:37 U Marijuana (THC) Screen Negative ng/mL (Negative) 04/22/21 11:37 Discharge Plan Discharge Patient Disposition: Home Clinical Impression: Anxiety about health, Shortness of breath Condition: Stable Prescriptions: No Action No Known Home Medications 0RF Discharge Orders: Discharge ED (Routine); Ordered 04/22/21 Ordered By: Pierce Phan Referrals: Rupa Duffy MD [Primary Care Provider] - Discharge Diet: Usual diet Discharge Activity: Resume usual activity Patient Instructions: Abdominal Pain (ED) Activity Restrictions/Additional Instructions: Thank you for visiting the emergency department. You were seen and evaluated for abdominal pain. The exact cause of your symptoms is unclear however does not appear to need hospitalization at this time. No abnormality was observed on chest x-ray to explain shortness of breath. Please follow-up with your primary care provider. Please establish with a primary care provider if you do not currently have one. Please return to the emergency department for anything that we discussed or anything else that you are concerned about and feel needs emergency department evaluation. Coding Level of Care Code ED Retention Specialist for Radha Fwgénesis Exam Comprehensive
--- NOTE | 2021-04-22 11:12 | XRR_ITS ---
PROCEDURE INFORMATION: Exam: XR Chest Exam date and time: 04/22/2021 11:12 AM Age: 20 years old Clinical indication: Shortness of breath; Additional info: SOB TECHNIQUE: Imaging protocol: XR of the chest. Views: 1 view. COMPARISON: No relevant prior studies available. FINDINGS: Lungs: Unremarkable. No consolidation. Pleural spaces: Unremarkable. No pleural effusion. No pneumothorax. Heart/Mediastinum: Unremarkable. No cardiomegaly. Bones/joints: Unremarkable. XR/XR chest 1V portable [id number] IMPRESSION: No acute findings.
[2021-04-22 11:18] VITALS: BP 132/78; PULSE 85; O2SAT 98
[2021-04-22 11:52] LABS: Basophils % 0.5 %; Eosinophils # 0.3 10^3/uL (0.0-0.8); Eosinophils % 3.9 %; Hematocrit 42.7 % (37.0-47.0); Hemoglobin 13.6 g/dL (11.5-15.3); Lymphocytes # 2.6 10^3/uL (0.8-4.8); Lymphocytes % 30.4 %; Mean Corpuscular HGB Conc 31.9 g/dL (30.0-36.0); Mean Corpuscular Hemoglobin 27.6 pg (28.0-34.0); Mean Corpuscular Volume 86.6 fl (81-99); Mean Platelet Volume 9.5 fL (7.4-10.4); Monocytes # 0.6 10^3/uL (0.2-0.9); Monocytes % 6.6 %; Neutrophils # 4.93 10^3/uL (1.8-7.7); Neutrophils % 58.4 %; Nucleated Red Blood Cells % 0 %; Platelet Count 328 10^3/cmm (130-400); Red Blood Count 4.93 10^6/uL (4.1-5.3); White Blood Count 8.5 10^3/uL (4.0-10.0)
[2021-04-22 12:08] LABS: HCG Qualitative Urine. Negative (Negative)
[2021-04-22 12:14] LABS: Alanine Aminotransferase 22 U/L (0-33); Albumin Level 4.7 g/dL (3.5-5.2); Alkaline Phosphatase 73 IU/L (35-105); Anion Gap 15.9 (5-19); Aspartate Amino Transferase 26 U/L (0-32); Blood Urea Nitrogen 15 mg/dL (6-20); Calcium 9.1 mg/dL (8.5-10.5); Carbon Dioxide 24 mmol/L (22-29); Chloride 100 mmol/L (98-107); Globulin 3.2 g/dL (1.3-4.6); Glomerular Filtration Rate 90.5 mL/min (90-130); Glucose 95 mg/dL (65-115); Osmolality Calculated 283 mOsm/kg (285-295); Potassium 3.9 mmol/L (3.5-5.1); Sodium 136 mmol/L (136-145); Total Bilirubin 0.5 mg/dL (0.15-1.2); Total Protein 7.9 g/dL (6.6-8.7)
[2021-04-22 12:16] LABS: Add Urine Microscopic? YES; Bilirubin Urine Neg (Negative); Blood Urine Neg (Negative); Glucose Urine UA Norm (Normal); Ketones Urine Negative (Negative); Leukocyte Esterase Urine Negative (Negative); Nitrate Urine Negative (Negative); Protein Urine Neg (Negative); Specific Gravity, Urine 1.015 (1.005-1.030); Urine Appearance SL Hazy (CLEAR); Urine Color Yellow (Yellow); Urobilinogen Urine Norm (Negative); pH Urine 6.5 (5-7)
[2021-04-22 12:18] LABS: Add Urine Culture? No; Bacteria Urine 4+ /hpf; Squamous Epithelial Cell Urine 25-40 /hpf (0-5); WBC Urine RARE /hpf (0-5)
[2021-04-22 12:24] LABS: Amphetamines Screen Urine Negative (Negative); Barbiturates Screen Urine Negative (Negative); Benzodiazepines Screen Urine Negative (Negative); Cocaine Screen Urine Negative (Negative); Opiate Screen Urine Negative (Negative); PCP Screen Urine Negative (Negative); THC Screen Urine Negative (Negative)
== END 2021-04-22 13:23 | disposition home or self-care (01) ==
PROVIDERS: Emergency Medicine; Physician Assistant; Emergency Provider Emergency Medicine; PCP Family Medicine
DX: F41.9 Anxiety disorder, unspecified (principal); R06.02 Shortness of breath; Z87.891 Personal history of nicotine dependence
CPT/HCPCS: 71045; 80053; 80306; 81001; 81025; 85025; 99282